=== PATIENT | female | born 1990 | race Caucasian/White ===

== ENCOUNTER 2016-10-27 09:39 | Emergency (ER) | payer OTHER ==
[~2016-10-27] VITALS: Ht 175.3 cm; Wt 72.6 kg
[~2016-10-27 09:39] MED LIST: BACTRIM DS TAB1 EACH PO; CLEOCIN HCL150 MG PO; CLINDAMYCIN150 MG PO; DOCUSATE SODIU100 MG PO; HYDROXYZINE50 MG PO; IBUPROFEN800 MG PO; MIRENA52 MG; POLYTRIM EYE DR10 ML OPH; PREDNICOT10 MG PO; VIBRAMYCIN 100100 MG PO; VIBRAMYCIN100 MG PO; VICODIN10-300 PO
--- NOTE | 2016-10-27 10:35 | ED GI/GU/ABDOMINAL COMPLAINT ---
History of Present Illness General Chief Complaint: Abdominal Pain/Flank Pain Stated Complaint: LOWER ABD PAIN Source: patient Exam Limitations: no limitations Vital Signs & Intake/Output Vital Signs & Intake/Output Vital Signs Date Time Temp Pulse Resp B/P Pulse O2 O2 Flow FiO2 Ox Delivery Rate 10/27 1305 97.0 84 18 115/57 98 Room Air 10/27 1151 97.0 80 20 123/58 96 Room Air 10/27 1120 98.1 74 20 123/68 96 Room Air 10/27 1017 97.0 80 120/74 10/27 0944 97.3 74 16 119/82 94 Room Air Allergies Coded Allergies: Penicillins (Severe, DIFFICULTY BREATHING 08/03/16) Reconcile Medications Dicyclomine Hydrochloride (Bentyl) 10 MG CAPSULE 1 CAP PO TID PRN abdominal cramping Levonorgestrel (Mirena) 20 MCG/24 HOUR (5 YEARS) IUD CONTROL (Reported) Metronidazole 500 MG TABLET 1 TAB PO BID BACTERIAL VAGINOSIS (Reported) Triage Note: PT STATES SHE IS HAVING ABD PAIN . PT STATES SHE HAS HAD IT ON AND OFF FOR 3 WEEKS. PT SAW HER OBGYN WHO DID AN US AND TOLD HER EVERYTHING WAS FINE. PT STATES SHE HAS BEEN HAVING LOWER ABD PAIN TODAY FOR THE PAST 3 HOURS. PT STATES SHE HAD HER MENSES 2 WEEKS AGO. AN Triage Nurses Notes Reviewed? yes ? n Is pt currently ? No HPI: 26-year-old female presents with lower suprapubic and lower abdominal aching pain that is moderate to severe and intermittent that has been going on for approximately 3 weeks. She has a normal appetite. She states that she is purposely losing weight, change her diet significantly and is drinking herbal teas to help her with appetite suppression. She has no fever no flulike illness no urinary symptoms. No vaginal discharge or bleeding. She is with 2 abortions with D&C with a complication regarding excessive bleeding requiring transfusion. No other pelvic or abdominal pain. Last week she saw her MAIL CARRIER doctor for the symptoms, she has a Mirena in place, this was checked in appropriate position per the patient's MAIL CARRIER, pelvic exam was performed and cultures were negative, patient also had a pelvic ultrasound which she reports was negative. She has no back pain. She has no fever. There's been no treatment thus far no modifying factors. Past History Travel History Traveled to [place] past 21 day No Medical History Any Pertinent Medical History? 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 No Review of Systems Review of Systems Constitutional: Reports: see HPI. EENTM: Reports: no symptoms. Respiratory: Reports: no symptoms. Cardiovascular: Reports: no symptoms. GI: Reports: see HPI. Genitourinary: Reports: no symptoms. Musculoskeletal: Reports: no symptoms. Skin: Reports: no symptoms. Neurological/Psychological: Reports: no symptoms. Hematologic/Endocrine: Reports: no symptoms. Immunologic/Allergic: Reports: no symptoms. All Other Systems: Reviewed and Negative Physical Exam Physical Exam General Appearance: well developed/nourished Respiratory: normal breath sounds, chest non-tender, no respiratory distress Cardiovascular: regular rate/rhythm Gastrointestinal: normal bowel sounds, soft, no organomegaly, tenderness (MILD SUPRAPUBIC), NEGATIVE mCbURNEY'S POINT TENDERNESS, NEGATIVE Metz SIGN Comments: Well-developed well-nourished no apparent distress. HEENT: Atraumatic, extraocular motion intact Neck: Supple, no lymphadenopathy Back: Nontender no CVA tenderness Respiratory: No respiratory distress Extremities: No edema, full range of motion Neuro: Alert and oriented x3 Psych: Mood affect normal, normal memory normal judgment. Skin: Warm and dry, no rash on exposed skin Core Measures ACS in differential dx? No Severe Sepsis Present: No Septic Shock Present: No Progress Differential Diagnosis: AAA, AMI, appendicitis, biliary colic, bowel obstruction , colon cancer, cholecystitis, diverticulitis, ectopic , endometritis, esophageal varices, gastritis, hepatitis, hernia, hemorrhoids, ischemic bowel, inflamm bowel dis, intrauterine , kidney stone, [place]-Philip tear, ovarian cyst, ovarian torsion, pancreatitis, PID/cervicitis, peptic ulcer, PUD/ GERD, perforated viscous, SBO, threatened AB, UTI/pyelo Plan of Care: Orders Procedure Date/time Status Saline Lock 02/21 1019 Active HUMAN BETA HCG SCREEN 10/27 1019 Complete COMPREHENSIVE METABOLIC PANEL 10/27 1019 Complete CBC WITHOUT DIFFERENTIAL 10/27 1019 Complete Laboratory Tests 10/27/16 1036: Anion Gap 10, Estimated GFR > 60, BUN/Creatinine Ratio 16.7, Glucose 81, Calcium 9.6, Total Bilirubin 0.7, AST 26, ALT 37, Alkaline Phosphatase 59, Total Protein 7.0, Albumin 4.2, Globulin 2.8, Albumin/Globulin Ratio 1.5, Total Beta HCG NEGATIVE, CBC w Diff NO MAN DIFF REQ, RBC 4.96, MCV 83.6, MCH 28.1, RDW 13.2, MPV 9.4, Gran % 75.6 H, Lymphocytes % 15.7 L, Monocytes % 6.8, Eosinophils % 1.3, Basophils % 0.6, Absolute Granulocytes 7.4 H, Absolute Lymphocytes 1.5, Absolute Monocytes 0.7 H, Absolute Eosinophils 0.1, Absolute Basophils 0.1, PUBS MCHC 33.7 Diagnostic Imaging: Viewed by Me: CT Scan. Discussed w/RAD: CT Scan. Radiology Impression: PATIENT: JHONNY SCHOFIELD PRESENT AGE: 26 PATIENT ACCOUNT NO: [id number] : 92 LOCATION: [facility] ORDERING PHYSICIAN: DARCY FERNANDEZ SERVICE DATE: 10/27/16 EXAM TYPE: CAT - CT ABD & PELVIS W IV CONTRAST EXAMINATION: CT ABDOMEN AND PELVIS WITH CONTRAST CLINICAL INFORMATION: Lower abdominal pain. COMPARISON: None TECHNIQUE: Multidetector volumetric imaging was performed of the abdomen and pelvis before and after the IV administration of 96 mL of Optiray 320 intravenous contrast. Sagittal and coronal reformatted images were obtained on the technologist's workstation. DLP: 298.47 mGy-cm FINDINGS: LUNG BASES: The visualized lung bases are unremarkable. LIVER, GALLBLADDER, AND BILIARY TREE: The liver is normal in size, shape, and attenuation. No focal hepatic lesion or biliary ductal dilatation is present. Punctate calcification is seen within the inferior right hepatic lobe (image 29, series 2) likely representing a calcified granuloma. The gallbladder is unremarkable with no evidence of radiopaque gallstones, gallbladder wall thickening, or obvious pericholecystic inflammatory changes. PANCREAS: Unremarkable. SPLEEN: A few punctate calcifications are seen within the spleen, likely reflecting calcified granulomas. The spleen is otherwise unremarkable. ADRENAL GLANDS: Unremarkable. KIDNEYS AND URETERS: The kidneys are normal in size, shape, and attenuation. No hydronephrosis, hydroureter, or calculi seen. No perinephric stranding. BLADDER: Grossly unremarkable. GASTROINTESTINAL TRACT: There is no bowel obstruction, free intraperitoneal air or fluid. The appendix is within normal limits. A moderate amount of stool is seen throughout the colon. The sigmoid colon is decompressed. ABDOMINAL WALL: No significant hernia is appreciated. LYMPH NODES: No mesenteric, retroperitoneal or pelvic lymphadenopathy. VASCULAR: Nonaneurysmal abdominal aorta. Patent portal and renal veins. PELVIC VISCERA: Uterus is anteverted and contains an IUD. No adnexal mass. There is a probable 2.1 cm cyst within the right ovary (image 69, series 2). A small amount of fluid is seen surrounding the right adnexa. There is also small amount of pelvic free fluid. OSSEOUS STRUCTURES: There are no aggressive osseous lesions. IMPRESSION: 1. Probable small right ovarian cyst. There is a small amount of nonspecific fluid surrounding the right adnexa and within the pelvis. Further evaluation can be obtained with dedicated pelvic ultrasound, if clinically indicated. 2. Appendix is within normal limits. 3. Question mild thickening of the sigmoid colon which can be seen with mild colitis. Evaluation is limited secondary to underdistention. Clinical correlation recommended. DICTATED BY: KIRTI MONROE DO DATE/TIME DICTATED:1214 Initial ED EKG: none Comments: Treated with Toradol 30 mg IV. We will obtain labs and CT scan. Patient reevaluated and she is feeling better after the Toradol. CT scan shows possible small right ovarian cyst which per patient was not there on ultrasound. It also shows possible colitis. Since her symptoms have been going on for 3 weeks I recommended that she follows up with GI. She will take Bentyl for abdominal pain or cramping. She will return to ER with worsening abdominal pain nausea vomiting fever.i do not feel pt requires abx or further treatment at this time. Departure Departure Disposition: HOME OR SELF CARE Condition: Stable Clinical Impression Primary Impression: Colitis Referrals: PATIENT HAS NO PRIMARY CARE DR (PCP/Family) KAPIL WILKERSON MD Additional Instructions: [place] diet, high fiber foods Take Bentyl as needed for abdominal cramping Follow-up with retail leasing agent for further evaluation and treatment of your colitis if you're abdominal pain continues Return to the ER with severe pain, vomiting, fever Departure Forms: Customer Survey General Discharge Information Prescriptions: Current Visit Scripts Dicyclomine Hydrochloride (Bentyl) 1 CAP PO TID PRN abdominal cramping #15 CAP
[2016-10-27 11:00] LABS: ABSOLUTE BASOPHIL COUNT 0.1 /CUMM (0.0-0.2); ABSOLUTE EOSINOPHIL COUNT 0.1 /CUMM (0.0-0.7); ABSOLUTE GRANULOCYTE CT 7.4 /CUMM (1.4-6.5); ABSOLUTE LYMPH COUNT 1.5 /CUMM (1.2-3.4); ABSOLUTE MONOCYTE COUNT 0.7 /CUMM (0.10-0.60); BASOPHIL % 0.6 % (0.0-2.0); EOSINOPHIL % 1.3 % (0-5); GRANULOCYTE % 75.6 % (42.2-75.2); HEMATOCRIT 41.5 % (37-47); MEAN CORPUSCULAR HGB 28.1 PG (27.0-31.0); MEAN CORPUSCULAR HGB CONC 33.7 G/DL (33.0-37.0); MEAN CORPUSCULAR VOLUME 83.6 FL (81.0-99.0); MEAN PLATELET VOLUME 9.4 FL (7.4-10.4); PLATELET COUNT 230 /CUMM (130-400); RBC DISTRIBUTION WIDTH 13.2 % (11.5-14.5); RED BLOOD CELL CT 4.96 /CUMM (4.20-5.40); WHITE BLOOD CELL COUNT 9.8 /CUMM (4.8-10.8)
--- NOTE | 2016-10-27 12:32 | CT SCAN REPORT ---
EXAMINATION: CT ABDOMEN AND PELVIS WITH CONTRAST CLINICAL INFORMATION: Lower abdominal pain. COMPARISON: None TECHNIQUE: Multidetector volumetric imaging was performed of the abdomen and pelvis before and after the IV administration of 96 mL of Optiray 320 intravenous contrast. Sagittal and coronal reformatted images were obtained on the technologist's workstation. DLP: 298.47 mGy-cm FINDINGS: LUNG BASES: The visualized lung bases are unremarkable. LIVER, GALLBLADDER, AND BILIARY TREE: The liver is normal in size, shape, and attenuation. No focal hepatic lesion or biliary ductal dilatation is present. Punctate calcification is seen within the inferior right hepatic lobe (image 29, series 2) likely representing a calcified granuloma. The gallbladder is unremarkable with no evidence of radiopaque gallstones, gallbladder wall thickening, or obvious pericholecystic inflammatory changes. PANCREAS: Unremarkable. SPLEEN: A few punctate calcifications are seen within the spleen, likely reflecting calcified granulomas. The spleen is otherwise unremarkable. ADRENAL GLANDS: Unremarkable. KIDNEYS AND URETERS: The kidneys are normal in size, shape, and attenuation. No hydronephrosis, hydroureter, or calculi seen. No perinephric stranding. BLADDER: Grossly unremarkable. GASTROINTESTINAL TRACT: There is no bowel obstruction, free intraperitoneal air or fluid. The appendix is within normal limits. A moderate amount of stool is seen throughout the colon. The sigmoid colon is decompressed. ABDOMINAL WALL: No significant hernia is appreciated. LYMPH NODES: No mesenteric, retroperitoneal or pelvic lymphadenopathy. VASCULAR: Nonaneurysmal abdominal aorta. Patent portal and renal veins. PELVIC VISCERA: Uterus is anteverted and contains an IUD. No adnexal mass. There is a probable 2.1 cm cyst within the right ovary (image 69, series 2). A small amount of fluid is seen surrounding the right adnexa. There is also small amount of pelvic free fluid. OSSEOUS STRUCTURES: There are no aggressive osseous lesions. IMPRESSION: 1. Probable small right ovarian cyst. There is a small amount of nonspecific fluid surrounding the right adnexa and within the pelvis. Further evaluation can be obtained with dedicated pelvic ultrasound, if clinically indicated. 2. Appendix is within normal limits. 3. Question mild thickening of the sigmoid colon which can be seen with mild colitis. Evaluation is limited secondary to underdistention. Clinical correlation recommended.
[2016-10-27] MEDS ORDERED: METRONIDAZOLE500 M1 PO (12:42)
[2016-10-27] MEDS ORDERED: MIRENA1 EACH (12:43)
[2016-10-27] MEDS ORDERED: BENTYL10 M1 PO (12:57)
[2016-10-27 13:05] VITALS: BP 115/57
== END 2016-10-27 13:06 ==
LOC: ERH 09:39
PROVIDERS: Physician Assistant Surgical
DX: K52.9 Noninfective gastroenteritis and colitis, unspecified (principal)
CPT/HCPCS: 74177; 96374

== ENCOUNTER 2017-03-09 11:04 | Emergency (ER) | payer SELFPAY ==
[~2017-03-09] VITALS: Ht 175.3 cm; Wt 68.9 kg
[~2017-03-09 11:04] MED LIST changes: +BENTYL10 M1 PO; +METRONIDAZOLE500 M1 PO; +MIRENA1 EACH
[2017-03-09 11:08] VITALS: BP 135/79
[2017-03-09] MEDS ORDERED: FLAGYL500 MG PO (11:39)
--- NOTE | 2017-03-09 11:39 | ED GI/GU/ABDOMINAL COMPLAINT ---
History of Present Illness General Chief Complaint: Female Urogenital Problems Stated Complaint: "JUST GOT OVER MY PERIOD" "??DONT FEEL RIGHT" Source: patient Exam Limitations: no limitations Vital Signs & Intake/Output Vital Signs & Intake/Output Vital Signs Date Time Temp Pulse Resp B/P B/P Pulse O2 O2 Flow FiO2 Mean Ox Delivery Rate 03/09 1108 98.0 78 20 135/79 99 Room Air Allergies Coded Allergies: Penicillins (Severe, DIFFICULTY BREATHING 08/03/16) Reconcile Medications Dicyclomine Hydrochloride (Bentyl) 10 MG CAPSULE 1 CAP PO TID PRN abdominal cramping Levonorgestrel (Mirena) 20 MCG/24 HOUR (5 YEARS) IUD CONTROL (Reported) Metronidazole 500 MG TABLET 1 TAB PO BID BACTERIAL VAGINOSIS (Reported) Metronidazole (Flagyl) 500 MG TABLET 1 TAB PO BID bv Triage Note: PT TO ED C/O "NOT FEELING RIGHT DOWN THERE". PT STATES SHE HAS THE MIRENA AND ONLY GETS HER PERIOD EVERY 6 MONTHS. STATES SHE JUST GOT OVER HER PERIOD 2 DAYS AGO AND C/O FEELING "NOT RIGHT". STATES SHE CALLED DR GLEASON, WHO ADVISED HER TO COME TO ED. PT HAS BEEN TREATED IN THE PAST FOR BV. Triage Nurses Notes Reviewed? yes ? n Is pt currently ? No Onset: Abrupt Duration: day(s):, constant Radiation: no radiation Activities at Onset: none Prior Abdominal Problems: similar symptoms Sexually Active: Yes Last Time You Were Sexual: greater than 2 months ago HPI: 26-year-old female comes into emergency room with complaints of vaginal odor. Patient reports that she has the Mirena IUD in place. She gets sporadic periods every time that she gets a menstrual period With it she gets bacterial vaginosis. Patient reports that she will get a period every 4-6 months and this is happened to her multiple times. She has had multiple pelvic exams by her OB/ ASSISTANT COMMUNITY MANAGER doctor in the past and she is always been positive for Dr. vaginosis. She is sexually active with one partner. She does not want any type of pelvic exam or urine sample done. She just wants a prescription for Flagyl which she has been prescribed in the past for her bacterial vaginosis. She currently does not have insurance. Denies any chance of . Denies any other associated symptoms. (JUNO GRUBER) Past History Travel History Traveled to [place] past 21 day No Medical History Any Pertinent Medical History? see below for history Neurological: NONE EENT: NONE Cardiovascular: NONE Respiratory: NONE Gastrointestinal: NONE Hepatic: NONE Renal: NONE Musculoskeletal: NONE Psychiatric: NONE Endocrine: NONE Blood Disorders: anemia, BLOOD TRANSFUSION Cancer(s): NONE ASSISTANT COMMUNITY MANAGER/Reproductive: Other Medical Hx: Left maxillary sinusitis Left submandibular abscess Surgical History Surgical History: D&C after Psychosocial History What is your primary language Kyrgyz Tobacco Use: Never used ETOH Use: denies use Illicit Drug Use: denies illicit drug use Family History Hx Contributory? No (JUNO GRUBER) Review of Systems Review of Systems Constitutional: Reports: no symptoms. EENTM: Reports: no symptoms. Respiratory: Reports: no symptoms. Cardiovascular: Reports: no symptoms. GI: Reports: no symptoms. Genitourinary: Reports: see HPI. Musculoskeletal: Reports: no symptoms. Skin: Reports: no symptoms. Neurological/Psychological: Reports: no symptoms. Hematologic/Endocrine: Reports: no symptoms. Immunologic/Allergic: Reports: no symptoms. All Other Systems: Reviewed and Negative (JUNO GRUBER) Physical Exam Physical Exam General Appearance: well developed/nourished, alert Head: atraumatic, normal appearance Eyes: Bilateral: PERRL. Ears, Nose, Throat, Mouth: hearing grossly normal, moist mucous membrane Neck: normal inspection Respiratory: no respiratory distress Gastrointestinal: soft, non-tender Back: normal inspection Extremities: normal range of motion Neurologic/Psych: awake, alert, oriented x 3 Skin: intact, normal color Core Measures ACS in differential dx? No Severe Sepsis Present: No Septic Shock Present: No (JUNO GRUBER) Progress Differential Diagnosis: appendicitis, diverticulitis, ectopic , ovarian cyst, ovarian torsion, PID/cervicitis, UTI/pyelo, Gonorrhea and chlamydia, bacterial vaginosis, Trichomonas, Plan of Care: 03/09/2017 11:43:33 AM Patient declined any pelvic exam here in the emergency room. She declined a urine sample. She currently has IUD in place. Patient just wants a prescription for Flagyl to treat at bacterial vaginosis which she has had in the past and feels exactly the same. I explained to her I cannot rule out any type of underlying STD or other abnormality without getting further workup with urine sample and doing a pelvic exam and she understands this and agrees with plan of care. She has an IUD in place so chance of is extremely low but she would not provide a urine sample. Patient will follow up with her FREIGHT ASSOCIATE doctor as an outpatient. Patient will return if any concerns worsening symptoms. Initial ED EKG: none (JUNO GRUBER) Departure Departure Disposition: HOME OR SELF CARE Condition: Stable Clinical Impression Primary Impression: Vaginal odor Referrals: PATIENT HAS NO PRIMARY CARE DR (PCP/Family) Additional Instructions: Take Flagyl as prescribed. Follow-up with your FREIGHT ASSOCIATE doctor. He should follow up for pelvic exam if your symptoms persist. Return if any other concerns worsening symptoms. At this time you have declined a pelvic exam as well as a urine sample. Please go over all results of today's visit with your primary care doctor. Contact your primary care doctor to let them know you were here in the emergency room. There may be nonspecific findings which may not be related to your visit today here in the emergency room but may require further evaluation and chronic monitoring by your primary care doctor. If you had a laceration today the chance of foreign body always remains. You should follow-up with your primary care doctor for recheck in 3-5 days for a wound check. If you had an x-ray done there is a chance that a fracture could have been missed on initial read and you should follow-up with your primary care doctor for repeat x-rays if symptoms persist. If your blood pressure was elevated here in the emergency room please have rechecked by her primary care doctor within the next 48 hours by your primary care doctor. If you were prescribed a narcotic here in the emergency room or any type of controlled substances you're not allowed to drive while taking this medication or operate any type of heavy machinery. Narcotics can make you feel lightheaded dizziness nausea and can cause constipation. You may need to slat pickler a stool softener. Thank you for choosing [facility] emergency room. Please return to the emergency room immediately if you have any other concerns worsening of symptoms. Departure Forms: Customer Survey General Discharge Information Prescriptions: Current Visit Scripts Metronidazole (Flagyl) 1 TAB PO BID #20 TAB (JUNO GRUBER) PA/SAW SETTER Co-Sign Statement Statement: ED Attending supervision documentation- [] I saw and evaluated the patient. I have also reviewed all the pertinent lab results and diagnostic results. I agree with the findings and the plan of care as documented in the PA's/SAW SETTER's documentation. [X] I have reviewed the ED Record and agree with the PA's/SAW SETTER's documentation. [] Additions or exceptions (if any) to the PAs/SAW SETTER's note and plan are summarized below: [] (AGNIESZKA SON,TRISTIN Roberson)
== END 2017-03-09 11:50 ==
LOC: ERH 11:04
DX: N89.9 Noninflammatory disorder of vagina, unspecified (principal)

== ENCOUNTER 2017-09-15 09:03 | Emergency (ER) | payer OTHER ==
[~2017-09-15] VITALS: Ht 175.3 cm; Wt 85.7 kg
[~2017-09-15 09:03] MED LIST changes: +FLAGYL500 MG PO
[2017-09-15 09:11] VITALS: BP 113/63
--- NOTE | 2017-09-15 11:07 | ED INFLUENZA/URI COMPLAINT ---
History of Present Illness General Chief Complaint: Upper Respiratory Sx/Fever Stated Complaint: GOOD, COUGH, CHILLS Source: patient Exam Limitations: no limitations Vital Signs & Intake/Output Vital Signs & Intake/Output Vital Signs Date Time Temp Pulse Resp B/P B/P Pulse O2 O2 Flow FiO2 Mean Ox Delivery Rate 09/15 0911 98.3 110 18 113/63 98 Room Air Room Air Allergies Coded Allergies: Penicillins (Severe, DIFFICULTY BREATHING 08/03/16) Reconcile Medications Levonorgestrel (Mirena) 20 MCG/24 HOUR (5 YEARS) IUD CONTROL (Reported) Oseltamivir Phosphate (Tamiflu) 75 MG CAPSULE 1 CAP PO BID flu Triage Note: PT TO ED WITH C/O COUGH CONGESTION X 2 DAY, DENIES N/V/D. Triage Nurses Notes Reviewed? yes Onset: Abrupt Duration: day(s): (few), constant Timing: recent history No Modifying Factors: none : No Patient currently breastfeeds: No HPI: 26-year-old female comes into emergency room for headache, chills, bodyaches, and cough. Symptoms being going on for the past couple days. Son is sick with similar symptoms. Denies any other past medical history. Denies any ear pain. Denies numbness associated symptoms. (Dilshad Ly) Past History Travel History Traveled to [place] past 21 day No Medical History Any Pertinent Medical History? see below for history Neurological: NONE EENT: NONE Cardiovascular: NONE Respiratory: NONE Gastrointestinal: NONE Hepatic: NONE Renal: NONE Musculoskeletal: NONE Psychiatric: NONE Endocrine: NONE Blood Disorders: anemia, BLOOD TRANSFUSION Cancer(s): NONE OUTREACH NURSE/Reproductive: Other Medical Hx: Left maxillary sinusitis Left submandibular abscess Surgical History Surgical History: D&C after Psychosocial History What is your primary language [place] Tobacco Use: Never used ETOH Use: denies use Illicit Drug Use: denies illicit drug use Family History Hx Contributory? No (Dilshad Ly) Review of Systems Review of Systems Constitutional: Reports: see HPI. EENTM: Reports: see HPI. Respiratory: Reports: see HPI. Cardiovascular: Reports: no symptoms. GI: Reports: no symptoms. Genitourinary: Reports: no symptoms. Musculoskeletal: Reports: no symptoms. Skin: Reports: no symptoms. Neurological/Psychological: Reports: see HPI. Hematologic/Endocrine: Reports: no symptoms. Immunologic/Allergic: Reports: no symptoms. All Other Systems: Reviewed and Negative (Dilshad Ly) Physical Exam Physical Exam General Appearance: well developed/nourished, no apparent distress, alert Head: atraumatic, normal appearance Eyes: Bilateral: normal appearance, EOMI. Ears, Nose, Throat: moist mucous membrane, hearing grossly normal Neck: normal inspection Respiratory: normal breath sounds, no respiratory distress Cardiovascular: regular rate/rhythm Gastrointestinal: normal bowel sounds Back: normal inspection Extremities: normal inspection, normal range of motion, no edema Neurologic/Psych: awake, alert, oriented x 3, normal gait Skin: intact, normal color Core Measures Sepsis Present: No Sepsis Focused Exam Completed? No (Dilshad Ly) Progress Differential Diagnosis: influenza, neutropenia, otitis, pneumonia, pharyngitis, sinusitis Plan of Care: Orders Procedure Date/time Status RAPID VIRAL INFLUENZA A 09/15 1106 Complete Microbiology 09/15 1114 NASOPHARYN: Influenza Virus A & B Rapid Smear - COMP Initial ED EKG: none Comments: Son has positive flu swab. Patient treated symptomatically. Clinically looks well. In no apparent distress. (Dilshad Ly) Departure Departure Disposition: HOME OR SELF CARE Condition: Stable Clinical Impression Primary Impression: Influenza Referrals: Jason Gamez APRN (PCP/Family) Additional Instructions: Take Tamiflu as prescribed. Return if any other concerns. Isolation precautions. Movement Tylenol for fever. Please go over all results of today's visit with your primary care doctor. Contact your primary care doctor to let them know you were here in the emergency room. There may be nonspecific findings which may not be related to your visit today here in the emergency room but may require further evaluation and chronic monitoring by your primary care doctor. If you had a laceration today the chance of foreign body always remains. You should follow-up with your primary care doctor for recheck in 3-5 days for a wound check. If you had an x-ray done there is a chance that a fracture could have been missed on initial read and you should follow-up with your primary care doctor for repeat x-rays if symptoms persist. If your blood pressure was elevated here in the emergency room please have rechecked by [facility] primary care doctor within the next 48. If you were prescribed a narcotic here in the emergency room or any type of controlled substances you're not allowed to drive while taking this medication or operate any type of heavy machinery. Narcotics can make you feel lightheaded dizziness nausea and can cause constipation. You may need to pick up attendant a stool softener. Thank you for choosing [facility] emergency room. Please return to the emergency room immediately if you have any other concerns worsening of symptoms. Departure Forms: Customer Survey General Discharge Information Prescriptions: Current Visit Scripts Oseltamivir Phosphate (Tamiflu) 1 CAP PO BID #10 CAP (Dilshad Ly) PA/ENGINEER Co-Sign Statement Statement: ED Attending supervision documentation- [] I saw and evaluated the patient. I have also reviewed all the pertinent lab results and diagnostic results. I agree with the findings and the plan of care as documented in the PA's/ENGINEER's documentation. [X] I have reviewed the ED Record and agree with the PA's/ENGINEER's documentation. [] Additions or exceptions (if any) to the PAs/ENGINEER's note and plan are summarized below: [] (Omid SON,Shila)
[2017-09-15] MEDS ORDERED: TAMIFLU75 M1 PO ×2 (11:10→11:11)
== END 2017-09-15 12:05 ==
LOC: ERH 09:03
DX: J11.1 Influenza due to unidentified influenza virus with other respiratory manifestations (principal)
CPT/HCPCS: 87804; 87804-59